=== PATIENT | male | born 1975 | race Two or more races ===

== ENCOUNTER 2018-03-24 19:20 | Emergency (ER) | payer OTHER ==
[2018-03-24 19:39] VITALS: BP 163/103; PULSE 82; TEMP 98.4; BMI 26.6
--- NOTE | 2018-03-24 20:34 | PDOC ---
History of Present Illness - General Chief Complaint: Ear Problem Stated Complaint: Ear Problem Time Seen by Provider: 03/24/18 20:30 - History of Present Illness Initial Comments: 03/24/18 20:32 42-year-old male without comorbidities presents for evaluation of bilateral ear pain times one month no systemic symptoms Past History - Past Medical History Allergies/Adverse Reactions: Allergies Allergy/AdvReac Type Severity Reaction Status Date / Time No Known Drug Allergies Allergy Verified 03/24/18 19:39 Home Medications: Ambulatory Orders Atorvastatin Ca [Lipitor] 20 mg PO HS 12/23/14 Hypercholesterolemia: Yes - Surgical History Appendectomy: Yes - Suicide/Smoking/Psychosocial Hx Smoking History: Never smoked Have you smoked in the past 12 months: No Information on smoking cessation initiated: No Hx Alcohol Use: No Drug/Substance Use Hx: No Substance Use Type: None Review of Systems - Review of Systems HEENTM: Yes: Ear Pain *Physical Exam - Vital Signs Last Vital Signs Temp Pulse Resp BP Pulse Ox 98.4 F 82 18 163/103 H 99 03/24/18 19:35 03/24/18 19:35 03/24/18 19:35 03/24/18 19:35 03/24/18 19:35 - Physical Exam Comments: 03/24/18 20:32 HEAD: NC/AT EYES: Conjuntiva clear Ears: Canals and TM's normal NOSE: No d/c THROAT: Moist mucous membrances, oral pharanx clear, uvula midline NECK: Supple without adenopathy CARDIAC: S1 S2 LUNGS: CTA Full and Equal breath sounds ABDOMEN: Soft NT ND MS: Full ROM in all joints without edema NEUROLOGIC: No gross sensory or motor deficits, NVID SKIN: Normal color and temperature no lesions or rashes Moderate Sedation - Procedure Monitoring Vital Signs: Procedure Monitoring Vital Signs Temperature 98.4 F 03/24/18 19:35 Pulse Rate 82 03/24/18 19:35 Respiratory Rate 18 03/24/18 19:35 Blood Pressure 163/103 H 03/24/18 19:35 O2 Sat by Pulse Oximetry (%) 99 03/24/18 19:35 *DC/Admit/Observation/Transfer Diagnosis at time of Disposition: Chronic ear pain - Discharge Dispostion Disposition: HOME Condition at time of disposition: Stable Decision to Admit order: No - Referrals Referrals: Arpita Bhagat MD [Primary Care Provider] - Cousin,Azar N, MD [Staff Physician] - - Patient Instructions Additional Instructions: Follow-up with ENT in one to 2 days for further evaluation and treatment options. Tylenol and Motrin as directed for pain. Return to the emergency room should symptoms worsen - Post Discharge Activity
== END 2018-03-24 20:37 | disposition home or self-care (01) ==
LOC: JERFT 19:20
DX: H92.03 Otalgia, bilateral (principal); E78.00 Pure hypercholesterolemia, unspecified
CPT/HCPCS: 99281-25

== ENCOUNTER 2020-07-17 04:19 | Day surgery (SDC) | payer OTHER ==
[2020-07-13 12:19] VITALS: BMI 26.1
[2020-07-17] MEDS ORDERED: MIDAZOLAM HCL 2 MG/2 ML SINGLE DOSE VIAL ONE ×2 (11:40)
[2020-07-17 14:02] VITALS: BP 134/86; PULSE 66; TEMP 98
== END 2020-07-17 13:35 | disposition home or self-care (01) ==
LOC: JASU-SURG 04:19
PROVIDERS: ATTEND Urology
PROC: 0TF4XZZ Fragmentation in Left Kidney Pelvis, External Approach (ICD-10-PCS; principal; 2020-07-17 11:00)
DX: N20.0 Calculus of kidney (principal)

== ENCOUNTER 2020-09-25 05:02 | Day surgery (SDC) | payer OTHER ==
[2020-09-22 11:44] VITALS: BMI 25.0
[2020-09-25] MEDS ORDERED: PROPOFOL 20 ML ONE (12:28)
[2020-09-25] MEDS ORDERED: MIDAZOLAM HCL 2 MG/2 ML SINGLE DOSE VIAL ONE (12:29)
[2020-09-25] MEDS ORDERED: ONDANSETRON 4 MG/2 ML VIAL IVPUSH PRN (12:53)
[2020-09-25] MEDS ORDERED: oxyCODONE HCL 5 MG TABLET PO PRN (12:53)
[2020-09-25] MEDS ORDERED: ACETAMINOPHEN 325 MG TABLET (FP) PO PRN (12:53)
[2020-09-25] MEDS ORDERED: LACTATED RINGERS SOLUTION 1,000 ML IV SCH (13:00)
[2020-09-25 14:52] VITALS: BP 110/65; PULSE 60; TEMP 97.3
== END 2020-09-25 13:45 | disposition home or self-care (01) ==
LOC: JASU-SURG 05:02
PROVIDERS: ATTEND Urology
PROC: 0TF3XZZ Fragmentation in Right Kidney Pelvis, External Approach (ICD-10-PCS; principal; 2020-09-25 12:00)
DX: N20.0 Calculus of kidney (principal)